=== PATIENT | female | born 1950 | race Caucasian/White ===

== ENCOUNTER 2025-03-22 13:04 | Emergency (ER) | payer MEDICARE ==
--- NOTE | 2025-03-22 13:13 | ERPHSYRPT ---
- History of Present Illness Time Seen by Provider: 03/22/25 13:13 Historian: patient, family Exam Limitations: no limitations Physician History: This is an obese 74-year-old white female patient with chest pain that was sudden in onset and associated with fluttering of her heart. It has since resolved completely. Patient has never been diagnosed with coronary artery disease. She is a daily smoker of cigarettes. Patient has a history of hyperlipidemia, hypothyroidism, arthritis, osteoarthritis, gastroesophageal reflux disease. She has seen a property field adjuster in the past. She has seen Dr. Mullins. Patient currently is asymptomatic Timing/Duration: today Activities at Onset: none Quality: aching Location: substernal, central Chest Pain Radiation: no radiation Severity of Pain-Max: mild Severity of Pain-Current: none Modifying Factors: Improves With: nothing Associated Symptoms: palpitations Prior Chest Pain/Cardiac Workup: no prior chest pain, no prior cardiac workup Nitro Today/Relief: no nitro taken today Aspirin Treatment Today: 81 mg x 4, provided by ED Allergies/Adverse Reactions: codeine Allergy (Verified 03/22/25 13:19) Hives tape sensitive at times Adverse Reaction (Uncoded 03/22/25 13:19) Rash Home Medications: Levothyroxine Sodium 50 Mcg [Synthroid 50 Mcg] 100 mcg PO DAILY 08/21/15 [History] Clopidogrel Bisulfate [Clopidogrel] 75 mg PO DAILY 03/22/25 [History] Ezetimibe 10 mg [Zetia 10 MG] 10 mg PO DAILY 03/22/25 [History] Fenofibrate 160 mg PO DAILY 03/22/25 [History] Lisinopril/Hydrochlorothiazide [Lisinopril-Hctz 20-12.5 mg Tab] 1 tab PO DAILY 03/22/25 [History] Oxybutynin Chloride [Oxybutynin Chloride ER] 5 mg PO BID 03/22/25 [History] Hx Tetanus, Diphtheria Vaccination/Date Given: Yes Hx Influenza Vaccination/Date Given: Yes Hx Pneumococcal Vaccination/Date Given: No Travel Risk - International Travel Have you traveled outside of the country in past 3 weeks: No - Emerging Infectious Disease Are you exhibiting symptoms associated with any current EIDs: No - Review of Systems Constitutional: No Symptoms Eyes: No Symptoms Ears, Nose, & Throat: No Symptoms Respiratory: No Symptoms Cardiac: Chest Pain Abdominal/Gastrointestinal: No Symptoms Genitourinary Symptoms: No Symptoms Musculoskeletal: No Symptoms Skin: No Symptoms Neurological: No Symptoms Psychological: No Symptoms Endocrine: No Symptoms Hematologic/Lymphatic: No Symptoms Immunological/Allergic: No Symptoms All Other Systems: Reviewed and Negative - Past Medical History Pertinent Past Medical History: Yes Neurological History: No Pertinent History ENT History: No Pertinent History Cardiac History: High Cholesterol Respiratory History: No Pertinent History Endocrine Medical History: Hypothyroidism Musculoskeletal History: Arthritis, Osteoarthritis GI Medical History: GERD History: No Pertinent History Psycho-Social History: No Pertinent History Female Reproductive Disorders: No Pertinent History - Past Surgical History Past Surgical History: Yes Neuro Surgical History: No Pertinent History Cardiac: No Pertinent History Respiratory: No Pertinent History Gastrointestinal: Cholecystectomy Genitourinary: No Pertinent History Musculoskeletal: Orthopedic Surgery, Other Female Surgical History: No Pertinent History Other Surgical History: R carpal tunnel repair in the past, surgery on broken L leg - Social History Smoking Status: Current every day smoker Exposure to second hand smoke: No - Social Determinants of Health Will the patient participate in the screening: Declined to provide - Nursing Vital Signs Nursing Vital Signs: Initial Vital Signs Temperature 98.9 F 03/22/25 13:12 Pulse Rate 95 H 03/22/25 13:12 Respiratory Rate 22 03/22/25 13:12 Blood Pressure 134/67 03/22/25 13:12 O2 Sat by Pulse Oximetry 95 03/22/25 13:12 Pain Scale Pain Intensity 6 - Physical Exam General Appearance: no apparent distress, alert, anxiety Eye Exam: PERRL/EOMI, eyes nml inspection Ears, Nose, Throat Exam: normal ENT inspection, moist mucous membranes Neck Exam: normal inspection, non-tender, supple, full range of motion Respiratory Exam: normal breath sounds, lungs clear, airway intact, No chest tenderness, No respiratory distress Cardiovascular Exam: regular rate/rhythm, normal heart sounds, normal peripheral pulses, pulse deficit Gastrointestinal/Abdomen Exam: soft, No tenderness Pelvic Exam: not done Rectal Exam: not done Back Exam: normal inspection, normal range of motion, No CVA tenderness, No vertebral tenderness Extremity Exam: normal inspection, normal range of motion, pelvis stable Neurologic Exam: alert, oriented x 3, cooperative, online advertising manager II-XII nml as tested, normal mood/affect, nml cerebellar function, nml station & gait, sensation nml Skin Exam: normal color, warm, dry Lymphatic Exam: No adenopathy SpO2 Interpretation: normal O2 Delivery: Room Air - Course Nursing assessment & vital signs reviewed: Yes EKG Interpreted by Me: RATE (95), Sinus Rhythm, NORMAL AXIS, NORMAL INTERVALS, NORMAL QRS, Other (PVC. QTc 450. No acute ischemia) Ordered Tests: Active Orders 24 hr Category Date Time Status Edge Inker STAT Care 03/22/25 13:16 Active EKG-ER Only STAT Care 03/22/25 13:16 Active IV Insertion STAT Care 03/22/25 13:16 Active Pulse Oximetry (ED) STAT Care 03/22/25 13:17 Active CBC W DIFF Stat Lab 03/22/25 13:43 Completed CMP Stat Lab 03/22/25 13:43 Completed D-DIMER QUANTITATIVE Stat Lab 03/22/25 13:43 Completed MAGNESIUM Stat Lab 03/22/25 13:43 Completed NT PRO BNPII Stat Lab 03/22/25 13:43 Completed PROTIME WITH INR Stat Lab 03/22/25 13:43 Completed TROPONIN Q4H Lab 03/22/25 13:43 Completed TROPONIN Q4H Lab 03/22/25 17:30 Ordered TROPONIN Q4H Lab 03/22/25 21:30 Ordered Medication Summary Discontinued Medications Generic Name Dose Route Start Last Admin Trade Name Freq PRN Reason Stop Dose Admin Aspirin 324 mg 03/22/25 13:17 03/22/25 14:05 Aspirin 81 Mg Tab.Chew PO 03/22/25 13:18 Not Given STAT ONE Aspirin Confirm 03/22/25 14:02 Aspirin 81 Mg Tab.Chew Administered 03/22/25 14:03 Dose 324 mg .ROUTE .STK-MED ONE Aspirin 243 mg 03/22/25 14:09 03/22/25 14:11 Aspirin 81 Mg Tab.Chew PO 03/22/25 14:10 243 mg STAT ONE Administration Lab/Rad Data: Laboratory Result Diagrams 03/22/25 13:43 03/22/25 13:43 Laboratory Results 03/22/25 03/22/25 03/22/25 Range/Units 13:43 13:43 13:43 WBC (3.98-10.04) x10^3/uL RBC (3.93-5.22) x10^6/uL Hgb (11.2-15.7) g/dL Hct (34.1-44.9) % MCV (79.4-94.8) fL MCH (25.6-32.2) pg MCHC (32.2-35.5) g/dL RDW (11.7-14.4) % Plt Count (182-369) x10^3/uL MPV (9.4-12.3) fL Gran % (34.0-71.1) % Immature Gran % (Auto) (0.001-0.429) % Nucleat RBC Rel Count (0.00-0.2) % Eos # (Auto) (0.04-0.36) x10^3/uL Immature Gran # (Auto) (0.001-0.031) x10^3u/L Absolute Lymphs (auto) (1.18-3.74) x10^3/uL Absolute Monos (auto) (0.24-0.86) x10^3/uL Absolute Nucleated RBC (0.00-0.012) x10^3u/L Lymphocytes % (19.3-51.7) % Monocytes % (4.7-12.5) % Eosinophils % (0.7-5.8) % Basophils % (0.1-1.2) % Absolute Granulocytes (1.56-6.13) x10^3/uL Basophils # (0.01-0.08) x10^3/uL PT 10.7 (9.4-12.5) SECONDS INR 0.95 (0.8-3.0) D-Dimer 0.33 (0.0-0.50) mg/L Sodium 140 (135-145) mmol/L Potassium 4.0 (3.5-5.1) mmol/L Chloride 109 H (98-107) mmol/L Carbon Dioxide 24 (22-30) mmol/L Anion Gap 10.7 (5-15) MEQ/L BUN 25 H (7-17) mg/dL Creatinine 0.87 (0.52-1.04) mg/dL Estimated GFR 70.7 ML/MIN Glucose 133 H (74-106) mg/dL Calcium 9.1 (8.4-10.2) mg/dL Magnesium 1.9 (1.6-2.3) mg/dL Total Bilirubin 0.30 (0.2-1.3) mg/dL AST 24 (14-36) U/L ALT 18 (0-35) U/L Alkaline Phosphatase 55 (38-126) U/L Troponin I < 0.012 (0.000-0.033) ng/mL NT-Pro-B Natriuret Pep 296 (<300) pg/mL Serum Total Protein 7.0 (6.3-8.2) g/dL Albumin 4.2 (3.5-5.0) g/dL 03/22/25 Range/Units 13:43 WBC 11.0 H (3.98-10.04) x10^3/uL RBC 3.83 L (3.93-5.22) x10^6/uL Hgb 11.8 (11.2-15.7) g/dL Hct 37.2 (34.1-44.9) % MCV 97.1 H (79.4-94.8) fL MCH 30.8 (25.6-32.2) pg MCHC 31.7 L (32.2-35.5) g/dL RDW 13.7 (11.7-14.4) % Plt Count 337 (182-369) x10^3/uL MPV 11.3 (9.4-12.3) fL Gran % 65.3 (34.0-71.1) % Immature Gran % (Auto) 0.3 (0.001-0.429) % Nucleat RBC Rel Count 0.0 (0.00-0.2) % Eos # (Auto) 0.48 H (0.04-0.36) x10^3/uL Immature Gran # (Auto) 0.03 (0.001-0.031) x10^3u/L Absolute Lymphs (auto) 2.45 (1.18-3.74) x10^3/uL Absolute Monos (auto) 0.78 (0.24-0.86) x10^3/uL Absolute Nucleated RBC 0.00 (0.00-0.012) x10^3u/L Lymphocytes % 22.2 (19.3-51.7) % Monocytes % 7.1 (4.7-12.5) % Eosinophils % 4.4 (0.7-5.8) % Basophils % 0.7 (0.1-1.2) % Absolute Granulocytes 7.21 H (1.56-6.13) x10^3/uL Basophils # 0.08 (0.01-0.08) x10^3/uL PT (9.4-12.5) SECONDS INR (0.8-3.0) D-Dimer (0.0-0.50) mg/L Sodium (135-145) mmol/L Potassium (3.5-5.1) mmol/L Chloride (98-107) mmol/L Carbon Dioxide (22-30) mmol/L Anion Gap (5-15) MEQ/L BUN (7-17) mg/dL Creatinine (0.52-1.04) mg/dL Estimated GFR ML/MIN Glucose (74-106) mg/dL Calcium (8.4-10.2) mg/dL Magnesium (1.6-2.3) mg/dL Total Bilirubin (0.2-1.3) mg/dL AST (14-36) U/L ALT (0-35) U/L Alkaline Phosphatase (38-126) U/L Troponin I (0.000-0.033) ng/mL NT-Pro-B Natriuret Pep (<300) pg/mL Serum Total Protein (6.3-8.2) g/dL Albumin (3.5-5.0) g/dL - Progress Progress: improved, re-examined Air Movement: good Progress Note: 03/22/25 15:15 My medical decision making and the assignment of moderate complexity of this patient's medical issue today is based on review of the patient's past medical history, review of the patient's medication list, reviewed patient drug allergy list, history present illness and physical findings on examination. The workup in this patient includes twelve-lead EKG, CBC, CMP, magnesium level, troponin level, D-dimer, BNP. Differential diagnosis includes was not limited to myocardial infarction, arrhythmia, CHF, pulmonary infiltrate, electrolyte abnormalities 03/22/25 15:17 I interpreted the patient's laboratory data results. Based on laboratory data results, there are no acute, emergent medical issues. The patient does not want to stay for a repeat troponin and twelve-lead EKG. She does not want to stay for chest x-ray. I discussed with her the possibility of her having a elevated troponin level on the second draw as well as possibility of having an acute cardiopulmonary finding on the chest x-ray. She understands that her condition could worsen if there is a recurrence and she could . She still wants to leave and will sign AGAINST MEDICAL ADVICE form. I did review with her the first round of laboratory data results. Blood Culture(s) Obtained: No Antibiotics given: No Counseled pt/family regarding: lab results, diagnosis, need for follow-up Medical Desision Making - Independent Historian Additional History obtained from: Spouse - Diagnostic Testing Diagnostic test were ordered, analyzed, and reviewed by me: Yes - Risk of complications Low Risk: Low risk of morbidity from additional dx testing or treatment - Departure Departure Disposition: AMA Clinical Impression: Nonspecific chest pain Condition: Stable Critical Care Time: No Referrals: RELL COOK MD [Primary Care Provider, INTERNAL MEDICINE] - Follow up/PCP as directed Additional Instructions: Take all your medications as prescribed. Call your primary care provider and property field adjuster today, 03/22/2025, to make arrangements for follow-up appointment for further evaluation and management.
[2025-03-22 13:17] VITALS: TEMP 98.9
[2025-03-22 13:45] LABS: BASOPHIL % 0.7 % (0.1-1.2); Basophil (Absolute #) 0.08 x10^3/uL (0.01-0.08); Eosinophil (Absolute #) 0.48 x10^3/uL (0.04-0.36); Hematocrit 37.2 % (34.1-44.9); Hemoglobin 11.8 g/dL (11.2-15.7); IMMATURE GRAN # 0.03 x10^3u/L (0.001-0.031); IMMATURE GRAN % 0.3 % (0.001-0.429); Lymphocyte (Absolute #) 2.45 x10^3/uL (1.18-3.74); Mean Corpuscular Hemoglobin 30.8 pg (25.6-32.2); Mean Corpuscular Hgb Concent. 31.7 g/dL (32.2-35.5); Monocyte (Absolute #) 0.78 x10^3/uL (0.24-0.86); NUCLEATED RBC # 0.00 x10^3u/L (0.00-0.012); NUCLEATED RBC % 0.0 % (0.00-0.2); Platelet Count 337 x10^3/uL (182-369); Red Blood Count 3.83 x10^6/uL (3.93-5.22); White Blood Count 11.0 x10^3/uL (3.98-10.04)
[2025-03-22 13:59] LABS: INR 0.95 (0.8-3.0); PROTIME 10.7 SECONDS (9.4-12.5)
[2025-03-22] MEDS ORDERED: BABY ASPIRIN 81 MG CHEW ONE (14:02)
[2025-03-22] MEDS: BABY ASPIRIN 81 MG CHEW PO ONE ×2 (14:05→14:11)
[2025-03-22 14:07] LABS: Calcium 9.1 mg/dL (8.4-10.2); Carbon Dioxide 24.0 mmol/L (22-30); Creatinine 1 0.87 mg/dL (0.52-1.04); EST GLOMERULAR FILTRATION RATE 70.7 ML/MIN; Glucose 133.0 mg/dL (74-106); NT PRO BNPII 296.0 pg/mL (<300); Potassium 4.0 mmol/L (3.5-5.1); SGOT/AST 24.0 U/L (14-36); SGPT/ALT 18.0 U/L (0-35); Total Protein 7.0 g/dL (6.3-8.2)
[2025-03-22 15:08] VITALS: BP 166/60; PULSE 89; RESP 21; O2SAT 98
== END 2025-03-22 15:27 | disposition left against medical advice (07) ==
LOC: ED 13:04
DX: R07.9 Chest pain, unspecified (principal); Z79.02 Long term (current) use of antithrombotics/antiplatelets; Z79.899 Other long term (current) drug therapy; Z72.0 Tobacco use